=== PATIENT | male | born 1955 | race Caucasian/White ===

== ENCOUNTER 2016-12-04 12:07 | Emergency (ER) | payer OTHER | END 2016-12-04 14:44 | disposition home or self-care (01) | LOC: FER 12:07 | DX: S52.572A Other intraarticular fracture of lower end of left radius, initial encounter for closed fracture (principal); S52.571A Other intraarticular fracture of lower end of right radius, initial encounter for closed fracture; S00.91XA Abrasion of unspecified part of head, initial encounter; I10 Essential (primary) hypertension; F17.200 Nicotine dependence, unspecified, uncomplicated; Z79.899 Other long term (current) drug therapy; Z85.828 Personal history of other malignant neoplasm of skin; W11.XXXA Fall on and from ladder, initial encounter; Y92.69 Other specified industrial and construction area as the place of occurrence of the external cause; Y99.0 Civilian activity done for income or pay | CPT/HCPCS: 73090; 73100; 96372; J1170 ==

== ENCOUNTER 2021-12-09 01:11 | Emergency (ER) | payer MEDICARE, OTHER ==
[~2021-12-09 01:11] MED LIST: AMLODIPINE-BEN1 EAC4 PO; VITAMIN B12 IM
[2021-12-09 01:57] LABS: BASOPHIL 0.4 % (0-2); EOSINOPHIL 1.8 % (0-7); HCT 50.2 % (42.0-52.0); HGB 17.1 g/dl (13.2-18.0); LYMPHOCYTE 25.1 % (15-48); MCH 32.6 pg (25.0-31.0); MCHC 34.1 g/dL (32.0-36.0); MCV 95.8 fL (78.0-100.0); MONOCYTE 6.7 % (0-12); MPV 9.1 fL (6.0-9.5); NEUTROPHIL 65.6 % (41-80); NRBC 0; PLT 221 K/uL (150-400); RBC 5.24 M/uL (4.70-6.00); RDW 12.7 % (11.5-14.0); WBC 13.2 K/uL (4.0-10.5)
[2021-12-09 02:17] LABS: ALBUMIN 3.8 g/dL (3.4-5.0); BILIRUBIN - TOTAL 0.4 mg/dL (0.2-1.0); BUN/CREAT RATIO (CALC) 15.5 RATIO; CREATININE 0.97 mg/dL (0.67-1.17); GLOBULIN (CALCULATION) 3.1 g/dL; POTASSIUM 3.7 mmol/L (3.5-5.1); TOTAL PROTEIN 6.9 g/dL (6.4-8.2)
[2021-12-09 02:36] LABS: INR 0.99 (0.9-1.2); PROTHROMBIN TIME 12.5 SECONDS (11.8-13.4); PTT 30.3 SECONDS (24.4-34.7)
== END 2021-12-09 03:45 | disposition other institution (70) ==
LOC: FER 01:11
PROVIDERS: Emergency Medicine
DX: I21.4 Non-ST elevation (NSTEMI) myocardial infarction (principal); I10 Essential (primary) hypertension; F17.200 Nicotine dependence, unspecified, uncomplicated; Z79.899 Other long term (current) drug therapy
CPT/HCPCS: 36415; 70450; 71045; 71275; 80053; 84484; 85025; 85379; 85610; 85730; 93005; J1170; J1644; J2270; J2405; Q9967

== ENCOUNTER 2022-01-02 15:43 | Emergency (ER) | payer MEDICARE, OTHER ==
[2022-01-02 17:34] LABS: BASOPHIL 0.3 % (0-2); EOSINOPHIL 2.2 % (0-7); HGB 15.1 g/dl (13.2-18.0); MCH 32.9 pg (25.0-31.0); MCHC 34.3 g/dL (32.0-36.0); MCV 95.9 fL (78.0-100.0); MPV 9.4 fL (6.0-9.5); NRBC 0; PLT 204 K/uL (150-400); RBC 4.59 M/uL (4.70-6.00); RDW 12.8 % (11.5-14.0)
[2022-01-02 17:40] LABS: INR 1.09 (0.9-1.2); PROTHROMBIN TIME 13.8 SECONDS (11.9-13.9); PTT 31.1 SECONDS (24.9-34.6)
[2022-01-02 17:43] LABS: IRON % SATURATION 32.2 %SAT (20-50)
[2022-01-02 17:50] LABS: LACTIC ACID 1.5 mmol/L (0.4-1.9)
[2022-01-02 17:52] LABS: ALBUMIN 3.7 g/dL (3.4-5.0); BILIRUBIN - TOTAL 0.9 mg/dL (0.2-1.0); BUN/CREAT RATIO (CALC) 14.3 RATIO; CREATININE 0.91 mg/dL (0.67-1.17); GLOBULIN (CALCULATION) 3.2 g/dL; MAGNESIUM 1.9 mg/dL (1.8-2.4); POTASSIUM 4.1 mmol/L (3.5-5.1); TOTAL PROTEIN 6.9 g/dL (6.4-8.2)
[2022-01-02 19:17] LABS: BILIRUBIN NEGATIVE (NEGATIVE); BLOOD TRACE-INTACT Ery/uL (NEGATIVE); CLARITY CLEAR (CLEAR); COLOR YELLOW (YELLOW); GLUCOSE (U) NORMAL (NORMAL); LEUKOCYTES NEGATIVE Leu/uL (NEGATIVE); NITRITE NEGATIVE (NEGATIVE); PROTEIN NEGATIVE (NEGATIVE); SPECIFIC GRAVITY 1.015 (1.001-1.030); UROBILINOGEN 0.2 mg/dL (0.2-1.0)
[2022-01-02 19:37] LABS: SQUAMOUS EPITHELIAL CELLS RARE; URINARY RBC RARE; URINARY WBC RARE
[2022-01-02] MEDS ORDERED: NORCO 5-325 TA1 EACH PO (20:08)
[2022-01-05] MEDS ORDERED: VENTOLIN HFA IN18 GM INH (00:25)
[2022-01-05] MEDS ORDERED: ASPIRIN EC81 MG PO (00:26)
[2022-01-05] MEDS ORDERED: PLAVIX75 MG PO (00:26)
[2022-01-05] MEDS ORDERED: TOPROL XL 25MG25 MG PO (00:28)
[2022-01-05] MEDS ORDERED: PRINIVIL10 MG PO (00:29)
[2022-01-05] MEDS ORDERED: NITROQUIK SL0.4 MG SL (00:30)
[2022-01-05] MEDS ORDERED: LIPITOR40 MG PO (00:31)
[2022-01-05] MEDS ORDERED: ISOSORBIDE MONO60 MG PO (00:32)
[2022-01-06] MEDS ORDERED: OXY-IR 5MG5 MG PO (13:22)
[2022-01-06] MEDS ORDERED: ACETAMINOPHEN325 MG PO (13:22)
[2022-01-06] MEDS ORDERED: MILK OF MA400 MG/5 M PO (13:22)
[2022-01-06] MEDS ORDERED: NAPROSYN250 MG PO (13:22)
[2022-01-06] MEDS ORDERED: SACCHAROMYCES250 MG PO (13:22)
[2022-01-06] MEDS ORDERED: AZITHROMYCIN250 MG PO (13:22)
[2022-01-06] MEDS ORDERED: GABAPENTIN 100100 MG PO (13:22)
[2022-01-06] MEDS ORDERED: MIRALAX17 GM PO (13:22)
[2022-01-06] MEDS ORDERED: SENOKOT8.6 MG PO (13:22)
== END 2022-01-02 20:31 | disposition home or self-care (01) ==
LOC: FER 15:43
PROVIDERS: Emergency Medicine
DX: R55 Syncope and collapse (principal); S22.42XA Multiple fractures of ribs, left side, initial encounter for closed fracture; I25.10 Atherosclerotic heart disease of native coronary artery without angina pectoris; J44.9 Chronic obstructive pulmonary disease, unspecified; F17.210 Nicotine dependence, cigarettes, uncomplicated; Z95.5 Presence of coronary angioplasty implant and graft; W19.XXXA Unspecified fall, initial encounter; Y93.89 Activity, other specified
CPT/HCPCS: 36415; 71250; 80053; 81001; 83540; 83550; 83605; 83735; 83880; 84145; 84443; 84484; 85025; 85610; 85730; 93005; 94010; 94664; J1170; J2405